=== PATIENT | male | born 1990 | race African-American/Black ===

== ENCOUNTER 2017-03-07 19:01 | Emergency (ER) | payer SELFPAY ==
[~2017-03-07] VITALS: Ht 180.3 cm; Wt 68.0 kg
== END 2017-03-07 21:00 | disposition home or self-care (01) ==
LOC: CED 19:01 → CFTX 19:01
DX: K04.7 Periapical abscess without sinus (principal); F17.210 Nicotine dependence, cigarettes, uncomplicated
CPT/HCPCS: 99283